=== PATIENT | female | born 1945 | race Caucasian/White ===

== ENCOUNTER 2018-03-24 08:25 | Inpatient (IN) ==
[2018-03-24] MEDS ORDERED: DULCOLAX PR PRN (16:37)
[2018-03-24] MEDS ORDERED: HALDOL PO PRN (16:44)
[2018-03-24] MEDS ORDERED: PHENERGAN PR PRN (16:45)
[2018-03-24] MEDS ORDERED: TYLENOL PR PRN (16:46)
[2018-03-24] MEDS ORDERED: ATROPINE 1 % OPHTH SOLN SL PRN (16:46)
[2018-03-24] MEDS: KLONOPIN PO PRN (17:46)
--- NOTE | 2018-03-24 20:52 | HISTORY AND PHYSICAL ---
REASON FOR ADMISSION: Respite. HISTORY OF PRESENT ILLNESS: Ms. Su is a 72-year-old white female with a long history of myositis who developed progressive confusion over the last several months. The patient failed to improve with routine treatments for dementia. The patient underwent a brain biopsy at [facility] 02/19/2018 which revealed a lymphoma. The patient underwent methotrexate and Rituxan but developed significant agitation which was refractory to Seroquel and Ativan but did appear to improve on Klonopin. The patient's course was discussed with her daughter who elected to discontinue chemotherapy and bring patient home on hospice. The patient has had significant difficulty with being awake in the evening causing significant caregiver fatigue. The patient is admitted to the hospital for a respite stay. PAST MEDICAL HISTORY/PROBLEM LIST: 1. Recent diagnosis of BEAMSTER lymphoma as per above. 2. Polymyositis as per above. MEDICATIONS: Are reviewed. PHYSICAL EXAMINATION: GENERAL: Reveals a pleasant white female resting comfortably and in no distress. Heart rate 100, respiratory rate 16 and unlabored, oxygen saturation 98% on room air. HEENT: Pupils are equal and reactive. Oropharynx is clear. NECK: Supple. CHEST: Reveals good air entry bilaterally without wheezing or rhonchi. CARDIAC: S1-S2. ABDOMEN: Soft without hepatosplenomegaly. EXTREMITIES: Without edema. LABORATORIES: No laboratories were obtained on this patient as she is a hospice respite patient. IMPRESSION: 72-year-old with history of polymyositis and immunosuppression who has developed central nervous system lymphoma. The patient has had a progressive downhill course. Current Palliative Performance Scale is approximately 60%. There is some difficulty managing the patient at home. She has increased difficulty in the evening. We will attempt to augment her Klonopin and will schedule a nocturnal dose. PLAN: 1. Continue current medications with the addition of a nocturnal Klonopin dose. 2. Do not resuscitate has been discussed with the patient and she will be allowed to have a natural upon her decline. cc: Acosta Chang MD
[2018-03-24] MEDS: REQUIP PO SCH (20:53)
[2018-03-24] MEDS: ZYPREXA PO SCH (20:54)
[2018-03-24] MEDS: DESYREL PO SCH (20:54)
[2018-03-24] MEDS: KLONOPIN PO SCH (20:54)
[2018-03-24] MEDS: KEPPRA PO SCH (20:54)
[2018-03-24] MEDS: MELATONIN PO SCH (20:54)
[2018-03-24] MEDS: TOPROL XL PO SCH (20:54)
[2018-03-24] MEDS: PATIENT'S OWN MED PO SCH (21:08)
[2018-03-24] MEDS: PATIENT'S OWN MED PO PRN (21:46)
[2018-03-25] MEDS: ZYPREXA PO SCH ×2 (08:33→23:13)
[2018-03-25] MEDS: MIRALAX PO SCH (08:33)
[2018-03-25] MEDS: TOPROL XL PO SCH ×2 (08:33→23:12)
[2018-03-25] MEDS: ARICEPT PO SCH (08:34)
[2018-03-25] MEDS: KEPPRA PO SCH ×2 (08:34→23:12)
[2018-03-25 21:26] LABS: URINE SOURCE CLEAN CATCH
[2018-03-25 21:29] LABS: BILIRUBIN URINE NEGATIVE (NEGATIVE); BLOOD URINE NEGATIVE (NEGATIVE); COLOR STRAW; GLUCOSE URINE NEGATIVE (NEGATIVE); KETONE URINE NEGATIVE (NEGATIVE); LEUKOCYTES URINE NEGATIVE (NEGATIVE); NITRITE URINE NEGATIVE (NEGATIVE); PROTEIN URINE NEGATIVE (NEGATIVE); TURBIDITY URINE CLEAR (CLEAR); UROBILINOGEN URINE NORMAL (NORMAL)
[2018-03-25 21:30] LABS: UR EPITHELIAL CELLS <10 /HPF (<10); URINE BACTERIA NEGATIVE /HPF; URINE RBC <10 /HPF (<10); URINE WBC <10 /HPF (<10)
[2018-03-25] MEDS: REQUIP PO SCH (23:12)
[2018-03-25] MEDS: PATIENT'S OWN MED PO SCH (23:13)
[2018-03-25] MEDS: DESYREL PO SCH (23:13)
[2018-03-25] MEDS: KLONOPIN PO SCH (23:13)
[2018-03-25] MEDS: MELATONIN PO SCH (23:13)
--- NOTE | 2018-03-26 03:28 | PULMONOLOGY PROGRESS NOTE ---
DATE: 03/25/2018 SUBJECTIVE: The patient has been more calm today. She did sleep well last night. She is resting comfortably now. OBJECTIVE: Vital signs: The patient is afebrile for the last 24 hours. Blood pressure 115/72, heart rate 72, respiratory rate 16, oxygen saturation 97% on room air. HEENT: Pupils are equal and reactive. Oropharynx is clear. Neck: Supple. Chest: Reveals good air entry bilaterally without wheezing or rhonchi. Cardiac: S1, S2. Abdomen: Soft without hepatosplenomegaly. Extremities: Without edema. IMPRESSION: A 72-year-old with polymyositis, central nervous system lymphoma, with progressive downhill course. The patient was admitted yesterday for respite care. She appears to have improved on an increased nocturnal Klonopin dose. RECOMMENDATION: 1. Continue current medication regimen. 2. Continue current resuscitation status. cc: Acosta Chang MD
[2018-03-26] MEDS: ZYPREXA PO SCH ×2 (08:57→21:05)
[2018-03-26] MEDS: ARICEPT PO SCH (08:57)
[2018-03-26] MEDS: KEPPRA PO SCH ×2 (08:57→21:05)
[2018-03-26] MEDS: MIRALAX PO SCH (08:58)
[2018-03-26] MEDS: TOPROL XL PO SCH ×2 (08:58→21:05)
[2018-03-26] MEDS: PHENERGAN PO PRN (10:36)
--- NOTE | 2018-03-26 15:07 | Diag Imaging Result Doc PS360 ---
EXAM: CHEST-1 VIEW HISTORY: dyspnea TECHNIQUE: Chest single view COMPARISON: None. FINDINGS: The lungs are well expanded. The heart is not enlarged. The vessels are not distended. There are no infiltrates. No effusion identified. IMPRESSION: Negative exam. Electronically signed by Brandan Simmons 03/26/2018 3:04 PM
[2018-03-26] MEDS: KLONOPIN PO PRN (16:01)
[2018-03-26] MEDS: REQUIP PO SCH (21:05)
[2018-03-26] MEDS: DESYREL PO SCH (21:05)
[2018-03-26] MEDS: MELATONIN PO SCH (21:05)
[2018-03-26] MEDS: PATIENT'S OWN MED PO SCH (21:06)
[2018-03-26] MEDS: KLONOPIN PO SCH (21:08)
--- NOTE | 2018-03-27 05:55 | PULMONOLOGY PROGRESS NOTE ---
DATE: 03/26/2018 SUBJECTIVE: The patient was sleeping upon my arrival. No issues were conveyed to this practitioner today. OBJECTIVE: Vital Signs: The patient has been afebrile for the last 24 hours. BP 170/74, heart rate 105, respiratory rate 16 and unlabored, oxygen saturation 99%. HEENT: Pupils were equal and reactive. Oropharynx appears clear. Neck: Supple. Chest: Reveals good air entry bilaterally. Cardiac Examination: S1-S2. Abdomen: Soft. Extremities: Without edema. Laboratories: Urinalysis performed yesterday was within normal limits. No white blood cells were identified. Nitrites were negative. Chest x-ray performed today reveals normal lung mace with a normal cardiac silhouette. There were no active infiltrates or effusions. IMPRESSION: A 72-year-old with polymyositis, central nervous system lymphoma, with periods of agitation. She currently is on respite care. Family is considering a rehabilitation stay. RECOMMENDATIONS: 1. Continue current medication regimen. 2. Continue current resuscitation status. 3. Continue transfer for a rehabilitation stay at the family's request. cc: Acosta Chang MD
[2018-03-27] MEDS: ZYPREXA PO SCH ×2 (08:42→23:46)
[2018-03-27] MEDS: TOPROL XL PO SCH ×2 (08:43→23:46)
[2018-03-27] MEDS: KEPPRA PO SCH ×2 (08:43→23:45)
[2018-03-27] MEDS: ARICEPT PO SCH (08:43)
[2018-03-27] MEDS: MIRALAX PO SCH (08:43)
[2018-03-27] MEDS: KLONOPIN PO PRN (13:22)
[2018-03-27] MEDS: PHENERGAN PO PRN (15:09)
[2018-03-27] MEDS: PATIENT'S OWN MED PO PRN (15:23)
[2018-03-27] MEDS: KLONOPIN PO SCH (23:45)
[2018-03-27] MEDS: DESYREL PO SCH (23:45)
[2018-03-27] MEDS: REQUIP PO SCH (23:46)
[2018-03-27] MEDS: PATIENT'S OWN MED PO SCH (23:46)
[2018-03-27] MEDS: MELATONIN PO SCH (23:46)
--- NOTE | 2018-03-28 01:38 | PULMONOLOGY PROGRESS NOTE ---
DATE: 03/27/2018 SUBJECTIVE: The patient was sleeping upon my arrival. She was awake earlier today, and has had limited p.o. intake. She is voiding. She did eat approximately 50% of her breakfast. OBJECTIVE: Vital Signs: BP 121/71, heart rate 106, respiratory rate 20, oxygen saturation 98% on room air. HEENT: Pupils are equal and reactive. Oropharynx appears clear. Neck: Supple. Chest: Reveals good air entry bilaterally, without wheezing or rhonchi. Cardiac: S1-S2. Abdomen: Soft, with good bowel sounds. Extremities: Without edema. IMPRESSION: A 72-year-old with polymyositis, central nervous system lymphoma, with periods of agitation and pain. She appears to be comfortable on current medication regimen. Family is considering a rehabilitation stay. PLAN: 1. Continue current medication regimen. 2. Continue current resuscitation status. 3. Anticipate discharge home or to a rehabilitation facility tomorrow. cc: Acosta Chang MD
[2018-03-28] MEDS: KLONOPIN PO PRN (08:07)
[2018-03-28] MEDS: MIRALAX PO SCH (08:07)
[2018-03-28] MEDS: ARICEPT PO SCH (08:07)
[2018-03-28] MEDS: KEPPRA PO SCH ×2 (08:07→20:14)
[2018-03-28] MEDS: TOPROL XL PO SCH ×2 (08:07→20:14)
[2018-03-28] MEDS: ZYPREXA PO SCH ×2 (08:07→20:14)
[2018-03-28] MEDS: PATIENT'S OWN MED PO PRN (09:30)
[2018-03-28] MEDS: PHENERGAN PO PRN (09:33)
[2018-03-28] MEDS ORDERED: SENOKOT PO ONE (19:31)
[2018-03-28 20:07] VITALS: BP 151/78
[2018-03-28] MEDS: REQUIP PO SCH (20:14)
[2018-03-28] MEDS: MELATONIN PO SCH (20:14)
[2018-03-28] MEDS: PATIENT'S OWN MED PO SCH (20:15)
[2018-03-28] MEDS: KLONOPIN PO SCH (20:15)
[2018-03-28] MEDS: DESYREL PO SCH (20:15)
--- NOTE | 2018-03-29 00:30 | PULMONOLOGY PROGRESS NOTE ---
DATE: 03/28/2018 SUBJECTIVE: The patient is sitting on the side of her bed. She is awake, alert, and oriented to name. She does not know the date. She does not know her location. She is concerned that she has not had a bowel movement, and is asking if the supplement sitting at her bedside is a laxative. OBJECTIVE: Vital Signs: The patient has been afebrile for the last 24 hours. Blood pressure. 142/77, heart rate 109, respiratory rate 16 and unlabored, oxygen saturation 99% on room air. HEENT: Pupils are equal and reactive. Oropharynx is clear. Neck: Supple. Chest: Reveals good air entry bilaterally. Cardiac: S1-S2. Abdomen: Soft. No firmness identified. Extremities: Without edema. IMPRESSION: A 72-year-old with central nervous system lymphoma, polymyositis, with mental decline associated with her [employer] malignancy. Family is attempting to find her long-term placement. She may need to be discharged back home while placement is being pursued. PLAN: 1. Continue current medication regimen. 2. Patient received 2 senna for possible constipation. She has not had a bowel movement in the last 2 days. 3. Continue resuscitation status. 4. Anticipate discharge tomorrow. cc: Acosta Chang MD
[2018-03-29] MEDS: KLONOPIN PO PRN ×2 (03:14→10:15)
[2018-03-29] MEDS ORDERED: TYLENOL PO PRN (03:19)
[2018-03-29] MEDS: TOPROL XL PO SCH (08:36)
[2018-03-29] MEDS: KEPPRA PO SCH (08:36)
[2018-03-29] MEDS: ARICEPT PO SCH (08:36)
[2018-03-29] MEDS: MIRALAX PO SCH (08:37)
[2018-03-29] MEDS: ZYPREXA PO SCH (08:37)
--- NOTE | 2018-03-29 15:14 | DISCHARGE SUMMARY ---
ADMISSION DATE: 03/24/2018 DISCHARGE DATE: 03/29/2018 PATIENT PROFILE: Patient was admitted to hospice on 03/24/2018 and patient was discharged from a hospice respite stay on 03/29/2018. See admission medications. HOSPITAL COURSE: The patient was admitted to hospice for a respite stay for the family. The patient had some difficulty with sleeping at night, and wandering. Patient's Klonopin dose was increased to 1 mg p.o. at bedtime, and she slept through the evening except for 1 evening where she received a p.r.n. Klonopin dose. The patient will be discharged back to the family's care. No significant changes in the medications during this hospitalization, except for the addition of Klonopin 1 mg p.o. at bedtime. cc: Acosta Chang MD
== END 2018-03-29 10:35 | disposition hospice, home (50) | DRG 841 ==
LOC: DIRADM 08:25 → 3N 13:58
PROVIDERS: ADMIT Internal Medicine Pulmonary Disease; ATTEND Internal Medicine Pulmonary Disease
CPT/HCPCS: 71010; 71045; 81001; A9270